=== PATIENT | female | born 1965 | race American Indian/Alaskan Native ===

== ENCOUNTER 2021-09-05 14:18 | Emergency (ER) | payer OTHER ==
[2021-09-05 14:51] VITALS: BP 154/92
[2021-09-05] MEDS ORDERED: ASPIRIN 325 MG TAB PO ONE (15:31)
[2021-09-05] MEDS ORDERED: SODIUM CHLORIDE 0.9% 1000 ML 1,000 ML IV ONE (15:41)
--- NOTE | 2021-09-05 15:55 | XRay Report ---
CHEST 2 VIEWS INDICATION / CLINICAL INFORMATION: Chest Pain. COMPARISON: 05/03/09. FINDINGS: SUPPORT DEVICES: None. HEART / MEDIASTINUM: There is mild cardiomegaly. Pulmonary vasculature is normal. LUNGS / PLEURA: There are mild patchy parenchymal opacities in the right mid and lower lung zones. Th e left lung is clear. No pleural effusion is present. No pneumothorax. ADDITIONAL FINDINGS: No significant additional findings. IMPRESSION: Mild patchy parenchymal disease in the right mid and lower lung zones is nonspecific. Aty pical causes of pneumonia should be considered. Signer Name: Jose Enrique Cruz MD Signed: 09/05/2021 3:51 PM Workstation Name: [id number]
--- NOTE | 2021-09-05 16:12 | Emergency Department Report ---
ED Chest Pain HPI - General Chief Complaint: Chest Pain Stated Complaint: CHEST/SHOULDER PAIN Source: patient Mode of arrival: Ambulatory Limitations: No Limitations - History of Present Illness Initial Comments: 56-year-old presents female presents to the ED complaining of chest pain and shortness of breath x2 days. She states that she was evaluate a week prior by her PCP who suspected that the patient had Covid. States that she had a Covid test done 1 week ago and tested negative. She states she also had a chest x-ray that was negative. She states that symptom has not improved and PCP told her to report to the ED for further evaluation today when attempt to schedule televist. Patient states prior to coming to the ED she has been taking BC powder for pain. Patient has a history of hypertension. Patient is alert and oriented x4. Denies any nausea vomiting abdominal pain or diarrhea. Denies any fever chills. No acute distress noted .no ill appearance noted. - Related Data Previous Rx's Medication Instructions Recorded Last Taken Type Azithromycin [Zithromax Z-ROSALIA] 250 mg PO DAILY 5 Days #6 tab 09/05/21 Unknown Rx Allergies Allergy/AdvReac Type Severity Reaction Status Date / Time No Known Allergies Allergy Verified 09/05/21 14:43 Heart Score - HEART Score History: Slightly suspicious EKG: Normal Age: 45-65 Risk factors: 1-2 risk factors Troponin: < normal limit HEART Score: 2 - EKG Read Time Time EKG Completed: 15:30 EKG Read Time: 15:55 ED Review of Systems ROS: Stated complaint: CHEST/SHOULDER PAIN Other details as noted in HPI ED Past Medical Hx - Past Medical History Previous Medical History?: No - Surgical History Past Surgical History?: No - Medications Home Medications: Home Medications Medication Instructions Recorded Confirmed Last Taken Type Azithromycin [Zithromax Z-ROSALIA] 250 mg PO DAILY 5 Days #6 tab 09/05/21 Unknown Rx ED Physical Exam - General Limitations: No Limitations ED Course Vital Signs 09/05/21 14:43 Temperature 98 F Pulse Rate 105 H Respiratory 16 Rate Blood Pressure 154/92 [Left] O2 Sat by Pulse 98 Oximetry ED Medical Decision Making - Lab Data Result diagrams: 09/05/21 15:55 09/05/21 15:55 - EKG Data EKG shows normal: sinus rhythm Rate: tachycardia No standard instances Rhythm: NSR - Radiology Data [address] [place] [address] XRay Report Signed Patient: FERNANDO COTTO MR#: [id number] 16 : 1965 Acct:[id number] Age/Sex: 56 / F ADM Date: 09/05/21 Loc: ED Attending Dr: Ordering Physician: NATALYA NEWTON Date of Service: 09/05/21 Procedure(s): XR chest routine 2V Accession Number(s): [id number] cc: NATALYA NEWTON Fluoro Time In Minutes: CHEST 2 VIEWS INDICATION / CLINICAL INFORMATION: Chest Pain. COMPARISON: 05/03/09. FINDINGS: SUPPORT DEVICES: None. HEART / MEDIASTINUM: There is mild cardiomegaly. Pulmonary vasculature is normal. LUNGS / PLEURA: There are mild patchy parenchymal opacities in the right mid and lower lung zones. The left lung is clear. No pleural effusion is present. No pneumothorax. ADDITIONAL FINDINGS: No significant additional findings. IMPRESSION: Mild patchy parenchymal disease in the right mid and lower lung zones is nonspecific. Atypical causes of pneumonia should be considered. Signer Name: Jose Enrique Cruz MD Signed: 09/05/2021 3:51 PM Workstation Name: [id number] Transcribed By: RT Dictated By: Jose Enrique Cruz MD Electronically Authenticated By: Jose Enrique Cruz MD Signed Date/Time: 09/05/[address] [address] Cat Scan Report Signed Patient: FERNANDO COTTO MR#: [id number] 16 : 1965 Acct:[id number] Age/Sex: 56 / F ADM Date: 09/05/21 Loc: ED Attending Dr: Ordering Physician: RON CHIRINOS Date of Service: 09/05/21 Procedure(s): CT angio chest Accession Number(s): [id number] cc: RON CHIRINOS CTA CHEST WITH IV CONTRAST INDICATION: chest and shortness of breath 100ML OF OMNIPAQUE 350. TECHNIQUE: Axial CT images were obtained through the chest after injection of 100 cc Omni 350 IV contrast. 3 plane MIP reconstructions were produced. All CT scans at this location are performed using CT dose reduction for ALARA by means of automated exposure control. COMPARISON: None available. FINDINGS: Limited by moderate respiratory motion artifact PULMONARY ARTERIES: No pulmonary emboli. THORACIC AORTA: No acute abnormality. HEART: Normal. CORONARY ARTERIES: No significant calcification. PLEURA: No pleural effusion. No pneumothorax. LYMPH NODES: No significant adenopathy. LUNGS: Mild to moderate patchy streaky parenchymal disease both upper and right lower lobes likely secondary to Covid bronchopneumonia ADDITIONAL FINDINGS: None. UPPER ABDOMEN: No acute findings. SKELETAL STRUCTURES: No significant osseous abnormality. IMPRESSION: 1. No CT evidence for pulmonary embolism. 2. Multifocal bilateral bronchopneumonia. Please test for Covid Signer Name: Elvis Jerez MD Signed: 09/05/2021 6:53 PM Workstation Name: [id number] Transcribed By: ALFREDA Dictated By: Elvis Jerez MD Electronically Authenticated By: Elvis Jerez MD Signed Date/Time: 09/05/211852 DD/ 49 TD/TT: - Medical Decision Making 56-year-old presents female presents to the ED complaining of chest pain and shortness of breath x2 days. She states that she was evaluate a week prior by her PCP who suspected that the patient had Covid. States that she had a Covid test done 1 week ago and tested negative. She states she also had a chest x-ray that was negative. She states that symptom has not improved and PCP told her to report to the ED for further evaluation today when attempt to schedule televist. Patient states prior to coming to the ED she has been taking BC powder for pain. Patient has a history of hypertension. Patient is alert and oriented x4. Denies any nausea vomiting abdominal pain or diarrhea. Denies any fever chills. No acute distress noted .no ill appearance noted . Patient with previous taking steroid and has an albuterol inhaler. Current being treated by PCP for URI. Patient chest x-ray showed atypical pneumonia. Patient D-Dimer was 344.48 CTA order and showed bilateral pneumonia which suggested follow-up with Covid test. At time of discharge patient heart rate 71 after 1 L normal sa line. Patient walking 02 sat range from 97 to 98 %. No pulmonary embolism noted on CTA. Rechecked the patient is resting quietly quietly and comfortable and feeling better. I discussed the results of diagnostic study, my clinical impression and the plan for further treatment with the patient. Patient agrees with plan and discharge at this present time. All question addressed. I have given the patient instruction regarding a diagnosis ,expectation ,follow- up and return precaution. I explained to the patient that emergent condition may arise and to return to the ED for new worsen and any new persisting condition. I have explained the importance of following up with the primary care physician or referral physician listed below has instructed. The patient verbalized understanding of discharge instruction. Critical care attestation.: If time is entered above; I have spent that time in minutes in the direct care of this critically ill patient, excluding procedure time. ED Disposition Clinical Impression: Pneumonia due to COVID-19 virus Disposition: HOME / SELF CARE / HOMELESS Is pt being admited?: No Does the pt Need Aspirin: No Condition: Stable Instructions: COVID-19, Prevent the Spread of COVID-19 if You Are Sick - CDC, Bacterial Pneumonia (ED) Additional Instructions: Follow-up with your primary care doctor on Wednesday, August Return to the ED for any worsening symptom of shortness of breath or new symptoms Take Tylenol [id number] for fever I do recommend repeat outpatient Covid 19 testing base on chest xray result . In the meantime, isolate/quarantine yourself and stay away from anyone who is elderly, immunocompromised or chronically ill. You can use ibuprofen every 6-8 hours and Tylenol every 4-8 hours, using the dosing on the back of the bottle, as needed for any fever or body aches. Return to the emergency department with any worsening of your symptoms, development of chest pain or shortness of breath, or with any acute distress. Prescriptions: Azithromycin [Zithromax Z-ROSALIA] 250 mg PO DAILY 5 Days #6 tab Referrals: LELIA CLARK MD [Primary Care Provider] - 3-5 Days SARI AYOUB MD [Referring] - 3-5 Days Forms: Work/School Release Form(ED) Time of Disposition: 19:34
[2021-09-05 16:39] LABS: Alanine Aminotransferase 10 units/L (7-56); Albumin 4.2 g/dL (3.9-5); Blood Urea Nitrogen 11 mg/dL (7-17); Hemolysis Index 21
[2021-09-05 16:42] LABS: BUN/Creatinine Ratio 18
[2021-09-05 16:51] LABS: Basophils % (Auto) 0.5 % (0.0-1.8); Eosinophils # (Auto) 0.1 K/mm3 (0.0-0.4); Eosinophils % (Auto) 0.7 % (0.0-4.3); Hematocrit 40.8 % (30.3-42.9); Hemoglobin 13.3 gm/dl (10.1-14.3); Lymphocytes # (Auto) 1.5 K/mm3 (1.2-5.4); Lymphocytes % (Auto) 20.3 % (13.4-35.0); Mean Corpuscular HGB Conc 33 % (30-34); Mean Corpuscular Volume 95 fl (79-97); Monocytes # (Auto) 0.6 K/mm3 (0.0-0.8); Monocytes % (Auto) 8.5 % (0.0-7.3); Platelet Count 264 K/mm3 (140-440); Red Blood Count 4.27 M/mm3 (3.65-5.03); Red Cell Distribution Width 14.5 % (13.2-15.2)
--- NOTE | 2021-09-05 18:58 | Cat Scan Report ---
CTA CHEST WITH IV CONTRAST INDICATION: chest and shortness of breath 100ML OF OMNIPAQUE 350. TECHNIQUE: Axial CT images were obtained through the chest after injection of 100 cc Omni 350 IV contrast. 3 [place] MIP reconstructions were produced. All CT scans at this location are performed using CT dose reduc tion for ALARA by means of automated exposure control. COMPARISON: None available. FINDINGS: Limited by moderate respiratory motion artifact PULMONARY ARTERIES: No pulmonary emboli. THORACIC AORTA: No acute abnormality. HEART: Normal. CORONARY ARTERIES: No significant calcification. PLEURA: No pleural effusion. No pneumothorax. LYMPH NODES: No significant adenopathy. LUNGS: Mild to moderate patchy streaky parenchymal disease both upper and right lower lobes likely se condary to Covid bronchopneumonia ADDITIONAL FINDINGS: None. UPPER ABDOMEN: No acute findings. SKELETAL STRUCTURES: No significant osseous abnormality. IMPRESSION: 1. No CT evidence for pulmonary embolism. 2. Multifocal bilateral bronchopneumonia. Please test for Covid Signer Name: Elvis Jerez MD Signed: 09/05/2021 6:53 PM Workstation Name: [id number]
--- NOTE | 2021-09-06 11:00 | Electrocardiograph Report ---
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
== END 2021-09-05 19:40 | disposition home or self-care (01) ==
LOC: ED 14:18
DX: U07.1 COVID-19 (principal); J12.82 Pneumonia due to coronavirus disease 2019; Z79.899 Other long term (current) drug therapy
CPT/HCPCS: 36415; 71046; 71275; 80053; 83690; 84484; 85025; 85379; 93005; 93010; 96360; 99284; J7030; Q9967; Q0162

== ENCOUNTER 2021-10-16 22:26 | Emergency (ER) | payer OTHER ==
[2021-10-17] MEDS ORDERED: LOSARTAN 50 MG TAB PO ONE (04:26)
[2021-10-17] MEDS ORDERED: amLODIPine 5 MG TAB PO ONE (04:26)
[2021-10-17] MEDS ORDERED: OXYMETAZOLINE 0.05% NASAL SPRAY NS ONE (04:26)
--- NOTE | 2021-10-17 04:42 | Emergency Department Report ---
ED General Adult HPI - General Chief complaint: Nosebleed Stated complaint: NOSE BLEED Time Seen by Provider: 10/17/21 04:23 Source: patient Mode of arrival: Ambulatory Limitations: No Limitations - History of Present Illness Initial comments: Patient 56-year-old -Al[place] female with history of hypertension who presents for nosebleed that occurred approximately 3 hours ago. Symptoms were controlled by self applied direct pressure. Patient currently taking BP medications losartan and amlodipine. Patient nosebleed was spontaneous while she was in the restroom. Patient denies dizziness no nausea no vomiting no chest pain no back pain no lightheadedness, no headache noted at this time. There is been no shortness of breath or hemoptysis. Patient is denies bloody stools. There are no other symptoms at this time. - Related Data Previous Rx's Medication Instructions Recorded Last Taken Type Azithromycin [Zithromax Z-ROSALIA] 250 mg PO DAILY 5 Days #6 tab 09/05/21 Unknown Rx Oxymetazoline 0.05% [Vicks Sinex] 2 spray NS PRN PRN #1 bottle 10/17/21 Unknown Rx Allergies Allergy/AdvReac Type Severity Reaction Status Date / Time No Known Allergies Allergy Verified 09/05/21 14:43 ED Review of Systems ROS: Stated complaint: NOSE BLEED Other details as noted in HPI Constitutional: denies: chills, fever Eyes: denies: eye pain, eye discharge, vision change ENT: epistaxis. denies: throat pain, congestion Respiratory: denies: cough, shortness of breath, wheezing Cardiovascular: denies: chest pain, palpitations Endocrine: no symptoms reported Gastrointestinal: denies: abdominal pain, nausea, diarrhea Genitourinary: denies: urgency, dysuria, discharge Musculoskeletal: denies: back pain, joint swelling, arthralgia Skin: denies: rash, lesions Neurological: denies: headache, weakness, paresthesias Psychiatric: denies: anxiety, depression Hematological/Lymphatic: denies: easy bleeding, easy bruising ED Past Medical Hx - Medications Home Medications: Home Medications Medication Instructions Recorded Confirmed Last Taken Type Azithromycin [Zithromax Z-ROSALIA] 250 mg PO DAILY 5 Days #6 tab 09/05/21 Unknown Rx Oxymetazoline 0.05% [Vicks Sinex] 2 spray NS PRN PRN #1 bottle 03/25/22 Unknown Rx ED Physical Exam - General Limitations: No Limitations General appearance: alert, in no apparent distress - Head Head exam: Present: normocephalic, normal inspection - Eye Eye exam: Present: normal appearance, PERRL, EOMI Pupils: Present: normal accommodation - ENT ENT exam: Present: normal orophraynx, mucous membranes moist - Neck Neck exam: Present: normal inspection, full ROM. Absent: tenderness, lymphadenopathy - Respiratory Respiratory exam: Present: normal lung sounds bilaterally. Absent: respiratory distress, wheezes, stridor - Cardiovascular Cardiovascular Exam: Present: regular rate, normal rhythm, normal heart sounds. Absent: systolic murmur, diastolic murmur, rubs, gallop - GI/Abdominal GI/Abdominal exam: Present: soft, normal bowel sounds. Absent: distended, tenderness, guarding, rebound, rigid, bruit, hernia - Rectal Rectal exam: Present: deferred - Extremities Exam Extremities exam: Present: normal inspection, full ROM, tenderness, normal capillary refill - Back Exam Back exam: Present: normal inspection, full ROM. Absent: CVA tenderness (R), CVA tenderness (L) - Neurological Exam Neurological exam: Present: alert, oriented X3, CN II-XII intact, normal gait - Expanded Neurological Exam Expanded Patient oriented to: Present: person, place, time Speech: Present: fluid speech Best Eye Response ([place]): (4) open spontaneously Best Motor Response ([place]): (6) obeys commands Best Verbal Response ([place]): (5) oriented [place] Total: 15 - Psychiatric Psychiatric exam: Present: normal affect, normal mood - Skin Skin exam: Present: warm, dry, intact, normal color. Absent: rash ED Course Vital Signs 10/16/21 22:38 Temperature 98.3 F Pulse Rate 88 Respiratory 18 Rate Blood Pressure 186/108 O2 Sat by Pulse 99 Oximetry ED Medical Decision Making - Medical Decision Making Airway remains patent nares are patent. There is no nosebleed at this time plan DC to home with prescriptions. Including Afrin patient instructed to take BP medications as prescribed without fail. Patient will follow up with primary care doctor in 2 to 3 days. Patient will return to emergency department should symptoms worsen. Patient is currently ANO x3 amatory with steady gait patient DC'd in stable condition at this time. Critical care attestation.: If time is entered above; I have spent that time in minutes in the direct care of this critically ill patient, excluding procedure time. ED Disposition Clinical Impression: Bleeding from the nose Disposition: 01 HOME / SELF CARE / HOMELESS Is pt being admited?: No Does the pt Need Aspirin: No Condition: Stable Instructions: Nosebleed, Adult, Oxymetazoline nasal spray Additional Instructions: Take medications as prescribed, use direct pressure and Afrin spray for nosebleeds, follow-up with your doctor in 2 to 3 days. Return to emergency department should symptoms worsen. Prescriptions: Oxymetazoline 0.05% [Vicks Sinex] 2 spray NS PRN PRN #1 bottle PRN Reason: Nosebleed Referrals: GERTRUDIS CRAMER, JANICE [Primary Care Provider] - 3-5 Days Forms: Work/School Release Form(ED) Time of Disposition: 04:47
[2021-10-17 05:23] VITALS: BP 152/90
== END 2021-10-17 05:23 | disposition home or self-care (01) ==
LOC: ED 22:26
DX: R04.0 Epistaxis (principal); Z79.899 Other long term (current) drug therapy
CPT/HCPCS: 99282